=== PATIENT | male | born 1985 | race Caucasian/White ===

== ENCOUNTER 2018-11-24 18:49 | Emergency (ER) | payer OTHER, SELFPAY ==
[2018-11-24 18:50] VITALS: BP 132/71; PULSE 79; RESP 14; TEMP 37.3; O2SAT 96; BMI 25.0
[2018-11-24] MEDS: Tetracaine 0.5% Ophthalmic Bottle 1 DRP EACH EYE (22:39)
[2018-11-24] MEDS: Fluorescein 1 MG STRIP 1 STRIP RIGHT EYE (22:40)
--- NOTE | 2018-11-24 22:50 | ED.DCSUM_ITS ---
- ER Visit Summary Date of Service: 11/24/18 Chief Complaint: Foreign body sensation right eye History of Present Illness: The patient is a 33 M 2-day history of persistent foreign body sensation while sitting at the dinner table. Patient works around would work. Photophobia. No nausea vomiting. Denies any blurry vision. Last eye exam was 12 years ago with no glasses. States he sees a black spot in his eye. Physical Examination: General: Alert and oriented ?3, no acute distress HEENT: Normocephalic, atraumatic. Moist mucosa membranes. Visual acuity 20/30 right,/20/30 left. 20/25 OU eyelids everted no foreign bodies there is erythema the sclera. There is a black foreign body at 3 o'clock position. Fluorescein with no dye uptake after removal of foreign body. Neck: supple, nontender. Cardiovascular: Regular rate and rhythm, no murmurs Respiratory: Normal breath sounds, symmetric, no distress Abdomen: Soft, nontender, nondistended Extremities: Nontender, no edema, pulses intact ?4 Neuro: no focal neurological deficits. Test Results: [] Emergency Department Course and Treatment: Visual acuity stable. Exam with foreign body at 3 o'clock position. Tetracaine instilled, removed with the TB size needle. There is mild residual rust ring. No fluorescein uptake. Antibiotic ointment treatment twice a day follow with ophthalmology. Treatment Plan: [] Disposition: Discharge Impression: Right eye foreign body cornea status post removal with residual rust ring This note was generated with [employer] dictation software. It may contain incorrect words, spelling, and punctuation that were not noted in review of the chart prior to signing ED Disposition - Plan for ED Patient: Disposition: Home or Assisted Living Diagnosis: Foreign body of right cornea with residual material Instructions: ED Foreign Body Cornea Prescriptions: Bacitracin Opthalmic 1 applic RIGHT EYE BID #1 opth.tube Referrals: Care Physician,No Primary [Primary Care Provider] - Michael Hackett MD [STAFF PHYSICIAN] - 1 Day Additional Instructions: residual at 3 o'clock right eye.
== END 2018-11-24 23:05 | disposition home or self-care (01) ==
PROVIDERS: Emergency Provider Emergency Medicine
DX: T15.01XA Foreign body in cornea, right eye, initial encounter (principal); X58.XXXA Exposure to other specified factors, initial encounter; Y93.9 Activity, unspecified; Y92.9 Unspecified place or not applicable
CPT/HCPCS: 65220; 99283